=== PATIENT | male | born 1980 | race Caucasian/White ===

== ENCOUNTER 2023-10-24 10:40 | Emergency (ER) | payer OTHER ==
[2023-10-24 10:55] VITALS: TEMP 98.9
--- NOTE | 2023-10-24 11:14 | ERPHSYRPT ---
- History of Present Illness Time Seen by Provider: 10/24/23 11:10 Source: patient Exam Limitations: no limitations Patient Subjective Stated Complaint: hypertension Triage Nursing Assessment: Pt brought to the ER by his , hypertensive, denies pain, pulses normal, skin n/w/d, dizzy, lightheaded, has had a headache, slight chest pain that comes and goes, doesn't appear to be in any distress Timing/Duration: today Severity: mild Associated Symptoms: headaches Allergies/Adverse Reactions: No Known Drug Allergies Allergy (Verified 10/24/23 10:55) Hx Tetanus, Diphtheria Vaccination/Date Given: Yes Hx Influenza Vaccination/Date Given: No Hx Pneumococcal Vaccination/Date Given: No Travel Risk - International Travel Have you traveled outside of the country in past 3 weeks: No - Emerging Infectious Disease Are you exhibiting symptoms associated with any current EIDs: No - Review of Systems Eyes: No Symptoms Ears, Nose, & Throat: No Symptoms Respiratory: No Symptoms Cardiac: No Symptoms Abdominal/Gastrointestinal: No Symptoms Genitourinary Symptoms: No Symptoms Skin: No Symptoms Neurological: Dizziness Psychological: No Symptoms Endocrine: No Symptoms - Past Medical History Pertinent Past Medical History: Yes Neurological History: No Pertinent History ENT History: No Pertinent History Cardiac History: Hypertension Respiratory History: No Pertinent History Endocrine Medical History: No Pertinent History GI Medical History: No Pertinent History History: No Pertinent History Psycho-Social History: No Pertinent History Male Reproductive Disorders: No Pertinent History Other Medical History: SPINA BIFIDA - Past Surgical History Past Surgical History: No - Social History Smoking Status: Current some day smoker Exposure to second hand smoke: Yes Drug Use: none Patient Lives Alone: No - Social Determinants of Health Will the patient participate in the screening: Yes Do you worry about a steady place to live?: No Do you have any problems with any of the following?: No known problems In the past 12 months,have you had to go without utilities?: No Transportation Issues: No Has anyone in your support network made you feel unsafe?: No Have you or anyone in your house had to go without enough: No - Nursing Vital Signs Nursing Vital Signs: Initial Vital Signs Temperature 98.9 F 10/24/23 10:45 Pulse Rate 67 10/24/23 10:45 Blood Pressure 164/110 10/24/23 10:45 O2 Sat by Pulse Oximetry 100 10/24/23 10:45 Pain Scale Pain Intensity 0 - Physical Exam General Appearance: no apparent distress Eye Exam: PERRL/EOMI Ears, Nose, Throat Exam: normal ENT inspection Neck Exam: normal inspection Respiratory Exam: normal breath sounds Cardiovascular Exam: regular rate/rhythm Gastrointestinal/Abdomen Exam: soft, normal bowel sounds Neurologic Exam: alert, oriented x 3, cooperative Skin Exam: normal color SpO2: 100 Ordered Tests: Active Orders 24 hr Category Date Time Status CHEST 1 VIEW (PORTABLE) Stat Exams 10/24/23 11:09 Completed CMP Stat Lab 10/24/23 11:40 Completed MAGNESIUM Stat Lab 10/24/23 11:40 Completed Medication Summary Discontinued Medications Generic Name Dose Route Start Last Admin Trade Name Fly PRN Reason Stop Dose Admin Clonidine 0.2 mg 10/24/23 11:12 10/24/23 11:16 Clonidine Hcl 0.1 Mg Tablet PO 10/24/23 11:13 0.2 mg ONCE ONE Administration Clonidine Confirm 10/24/23 11:15 Clonidine Hcl 0.1 Mg Tablet Administered 10/24/23 11:16 Dose 0.2 mg .ROUTE [facility] Lab/Rad Data: Laboratory Result Diagrams 10/24/23 11:40 Laboratory Results 10/24/23 Range/Units 11:40 Sodium 140 (135-145) mmol/L Potassium 4.2 (3.5-5.1) mmol/L Chloride 106 (98-107) mmol/L Carbon Dioxide 26 (22-30) mmol/L Anion Gap 12.0 (5-15) MEQ/L BUN 16 (9-20) mg/dL Creatinine 0.77 (0.66-1.25) mg/dL Estimated GFR 113.9 ML/MIN Glucose 101 (74-106) mg/dL Calcium 9.4 (8.4-10.2) mg/dL Magnesium 2.1 (1.6-2.3) mg/dL Total Bilirubin 0.60 (0.2-1.3) mg/dL AST 24 (17-59) U/L ALT 22 (0-50) U/L Alkaline Phosphatase 55 (38-126) U/L Serum Total Protein 7.0 (6.3-8.2) g/dL Albumin 4.4 (3.5-5.0) g/dL - Progress Progress Note: patient was monitored here in the dept his BP improved with clonidine he will be discharged home on lisinopril 20 mg daily , he was on 40 mg daily and had norvasc as second antihypertensive. he was informed of the need to take his medication and his bp and follow up with his doctor 10/24/23 13:[address] Other (patient was informed of the need to follow up with Dr Lyle in the am he will be discharged with 20 mg of lisinopril daily ) - Departure Clinical Impression: Hypertension Condition: Stable Critical Care Time: No Referrals: LYNNETTE LYLE MD [Primary Care Provider] - Follow up/PCP as directed Additional Instructions: please check your BP daily Prescriptions: Lisinopril 20 mg [Zestril 20 MG] 20 mg PO DAILY #30 tablet
[2023-10-24] MEDS ORDERED: CLONIDINE 0.1 MG TABLET ONE (11:15)
[2023-10-24] MEDS: CLONIDINE 0.1 MG TABLET PO ONE (11:16)
--- NOTE | 2023-10-24 11:42 | XRAY ---
Indication: Cough. Comparison: March 31, 2022 Portable chest less inflated again demonstrating normal heart, lungs, and bony thorax.
[2023-10-24 12:05] LABS: ALBUMIN 4.4 g/dL (3.5-5.0); BILIRUBIN,TOTAL 0.6 mg/dL (0.2-1.3); Calcium 9.4 mg/dL (8.4-10.2); Creatinine 1 0.77 mg/dL (0.66-1.25); EST GLOMERULAR FILTRATION RATE 113.9 ML/MIN; MAGNESIUM 2.1 mg/dL (1.6-2.3); Potassium 4.2 mmol/L (3.5-5.1)
[2023-10-24 13:25] VITALS: O2SAT 100
[2023-10-24 13:26] VITALS: BP 133/95; PULSE 59; RESP 15
== END 2023-10-24 13:35 | disposition home or self-care (01) ==
LOC: ED 10:40
DX: I10 Essential (primary) hypertension (principal); Z79.899 Other long term (current) drug therapy; Z72.0 Tobacco use
CPT/HCPCS: 36415; 71045; 80053; 82533; 83735; 99283; A9270-GY